=== PATIENT | male | born 1990 | race American Indian/Alaskan Native ===

== ENCOUNTER 2020-05-04 23:43 | Emergency (ER) | payer SELFPAY ==
[2020-05-05] MEDS ORDERED: SODIUM CHLORIDE 0.9% 1000 ML 1,000 ML IV ONE ×3 (00:05→02:39)
[2020-05-05] MEDS ORDERED: ONDANSETRON 4 MG/2 ML INJ IV ONE (00:05)
[2020-05-05] MEDS ORDERED: KETOROLAC 30 MG/1 ML INJ IV ONE ×2 (00:06→01:51)
--- NOTE | 2020-05-05 00:07 | Event Note ---
ED Screening Note Date of service: 05/05/20 Time: 00:02 ED Screening Note: 30 -Congolese male presents to the emergency room for acute abdominal pain that radiates to the back started about 1500. Patient states that the pain is a 10 out of 10. Patient reports that he has been urinating blood. He denies any penile discharge. Patient admits to nausea and vomiting all day. Denies any past medical history currently takes no medications on a daily basis and has no known drug allergies. This initial assessment/diagnostic orders/clinical plan/treatment(s) is/are subject to change based on patients health status, clinical progression and re- assessment by fellow clinical providers in the ED. Further treatment and workup at subsequent clinical providers discretion. Patient/guardian urged not to elope from the ED as their condition may be serious if not clinically assessed and managed. Initial orders include:
[2020-05-05 00:25] LABS: Basophils % (Auto) 0.5 % (0.0-1.8); Eosinophils % (Auto) 0.4 % (0.0-4.3); Hematocrit 48.4 % (35.5-45.6); Hemoglobin 16.1 gm/dl (11.8-15.2); Lymphocytes # (Auto) 0.9 K/mm3 (1.2-5.4); Lymphocytes % (Auto) 14.2 % (13.4-35.0); Mean Corpuscular HGB Conc 33 % (32-34); Mean Corpuscular Volume 89 fl (84-94); Monocytes # (Auto) 0.3 K/mm3 (0.0-0.8); Monocytes % (Auto) 4.6 % (0.0-7.3); Platelet Count 226 K/mm3 (140-440); Red Blood Count 5.41 M/mm3 (3.65-5.03); Red Cell Distribution Width 12.8 % (13.2-15.2)
[2020-05-05 00:46] LABS: Alanine Aminotransferase 14 units/L (7-56); Albumin 4.7 g/dL (3.9-5); BUN/Creatinine Ratio 15; Blood Urea Nitrogen 15 mg/dL (9-20); Calcium 10.2 mg/dL (8.4-10.2); Hemolysis Index 4
--- NOTE | 2020-05-05 01:15 | Cat Scan Report ---
CT abdomen pelvis wo con INDICATION / CLINICAL INFORMATION: Right flank pain with hematuria. TECHNIQUE: Axial CT imaging of abdomen and pelvis was obtained without contrast. Coronal and sagittal reformatte d imaging obtained and reviewed. All CT scans at this location are performed using CT dose reduction for ALARA by means of automated exposure control. COMPARISON: None available. FINDINGS: CT abdomen without contrast demonstrates grossly normal appearance of the liver, spleen, pancreas, an d adrenal glands for noncontrast exam. Gallbladder is present and without obvious pathology. There is mild right hydronephrosis present. Hydronephrosis is caused by a 4 mm calculus in the mid to distal right ureter. The calculus is at the level of the superior acetabulum, right hip. No addition al calculi are seen within the right kidney. There is a nonobstructing 3 mm calculus in the left kidn ey. CT pelvis without contrast does not demonstrate any mass, free fluid, or focal inflammatory change. A normal appendix is present. GI tract is unremarkable. Visualized lung bases are clear. No significant acute osseous abnormality is noted. IMPRESSION: 1. Mild right hydronephrosis caused by a a 4 mm calculus in the mid to distal right ureter. 2. Left nephrolithiasis. Signer Name: Kat Connell MD Signed: 05/05/2020 1:11 AM Workstation Name: [id number]
--- NOTE | 2020-05-05 01:40 | Emergency Department Report ---
ED Abdominal Pain HPI - General Chief Complaint: Abdominal Pain Stated Complaint: ABD PAIN/BLOOD IN URINE Source: patient Mode of arrival: Ambulatory Limitations: No Limitations - History of Present Illness Initial Comments: 30 -Turk[place] male presents to the emergency room for acute abdominal pain that radiates to the back started about 1500. Patient states that the pain is a 10 out of 10. Patient reports that he has been urinating blood. He denies any penile discharge. Patient admits to nausea and vomiting all day. Denies any past medical history currently takes no medications on a daily basis and has no known drug allergies. MD Complaint: flank pain -: This afternoon Location: R flank Radiation: suprapubic Severity scale (0 -10): 10 Quality: stabbing, aching, sharp Consistency: constant Improves With: nothing Worsens With: nothing Associated Symptoms: nausea, vomiting, hematuria Treatments Prior to Arrival: NSAIDs (930) - Related Data Previous Rx's Medication Instructions Recorded Last Taken Type DOXYCYCLINE Hyclate [Vibramycin 100 mg PO Q12HR 10 Days #20 capsule 05/05/20 Unknown Rx CAP] Ketorolac [Toradol] 10 mg PO Q6H PRN #20 tablet 05/05/20 Unknown Rx Oxycodone HCl/Acetaminophen 1 each PO Q6HR PRN #12 tablet 05/05/20 Unknown Rx [Percocet 7.5/325 mg] Tamsulosin [Flomax] 0.4 mg PO QDAY #5 cap 05/05/20 Unknown Rx Allergies Allergy/AdvReac Type Severity Reaction Status Date / Time No Known Allergies Allergy Unverified 05/04/20 23:58 ED Review of Systems ROS: Stated complaint: ABD PAIN/BLOOD IN URINE Other details as noted in HPI Comment: All other systems reviewed and negative ED Past Medical Hx - Past Medical History Previous Medical History?: No - Surgical History Past Surgical History?: No - Social History Smoking Status: Never Smoker Substance Use Type: None - Medications Home Medications: Home Medications Medication Instructions Recorded Confirmed Last Taken Type DOXYCYCLINE Hyclate [Vibramycin 100 mg PO Q12HR 10 Days #20 capsule 05/05/20 Unknown Rx CAP] Ketorolac [Toradol] 10 mg PO Q6H PRN #20 tablet 05/05/20 Unknown Rx Oxycodone HCl/Acetaminophen 1 each PO Q6HR PRN #12 tablet 05/05/20 Unknown Rx [Percocet 7.5/325 mg] Tamsulosin [Flomax] 0.4 mg PO QDAY #5 cap 05/05/20 Unknown Rx ED Physical Exam - General Limitations: No Limitations General appearance: alert, in distress - Head Head exam: Present: atraumatic, normocephalic - Eye Eye exam: Present: normal appearance - ENT ENT exam: Present: mucous membranes moist - Neck Neck exam: Present: normal inspection, full ROM - Respiratory Respiratory exam: Present: normal lung sounds bilaterally. Absent: accessory muscle use - Cardiovascular Cardiovascular Exam: Present: regular rate, normal rhythm. Absent: systolic murmur, diastolic murmur, rubs, gallop - GI/Abdominal GI/Abdominal exam: Present: soft, tenderness. Absent: distended - Extremities Exam Extremities exam: Present: normal inspection - Back Exam Back exam: Present: CVA tenderness (R) - Neurological Exam Neurological exam: Present: alert, oriented X3 - Psychiatric Psychiatric exam: Present: normal affect, normal mood - Skin Skin exam: Present: warm, dry, intact, normal color. Absent: rash ED Course Vital Signs 05/04/20 23:55 Temperature 98.9 F Pulse Rate 71 Respiratory 16 Rate Blood Pressure 112/81 O2 Sat by Pulse 99 Oximetry ED Medical Decision Making - Lab Data Result diagrams: 05/05/20 00:12 05/05/20 00:12 - Radiology Data Radiology results: report reviewed Patient: JESUSITA BAPTISTE MR#: [id number] : 1990 Acct:[id number] Age/Sex: 30 / M ADM Date: 05/04/20 Loc: ED Attending Dr: Ordering Physician: GUSTAVO SINGH Date of Service: 05/05/20 Procedure(s): CT abdomen pelvis wo con Accession Number(s): [id number] cc: GUSTAVO SINGH CT abdomen pelvis wo con INDICATION / CLINICAL INFORMATION: Right flank pain with hematuria. TECHNIQUE: Axial CT imaging of abdomen and pelvis was obtained without contrast. Coronal and sagittal reformatted imaging obtained and reviewed. All CT scans at this location are performed using CT dose reduction for ALARA by means of automated exposure control. COMPARISON: None available. FINDINGS: CT abdomen without contrast demonstrates grossly normal appearance of the liver, spleen, pancreas, and adrenal glands for noncontrast exam. Gallbladder is present and without obvious pathology. There is mild right hydronephrosis present. Hydronephrosis is caused by a 4 mm calculus in the mid to distal right ureter. The calculus is at the level of the superior acetabulum, right hip. No additional calculi are seen within the right kidney. There is a nonobstructing 3 mm calculus in the left kidney. CT pelvis without contrast does not demonstrate any mass, free fluid, or focal inflammatory change. A normal appendix is present. GI tract is unremarkable. Visualized lung bases are clear. No significant acute osseous abnormality is noted. IMPRESSION: 1. Mild right hydronephrosis caused by a a 4 mm calculus in the mid to distal right ureter. 2. Left nephrolithiasis. Signer Name: Kat Connell MD Signed: 05/05/2020 1:11 AM Workstation Name: [id number] Transcribed By: Dictated By: Kat Connell MD Electronically Authenticated By: Kat Connell MD Signed Date/Time: 05/05/20110 DD/ 7 TD/TT: - Medical Decision Making 30 -Turk[place] male presents to the emergency room for acute abdominal pain that radiates to the back started about 1500. Patient states that the pain is a 10 out of 10. Patient reports that he has been urinating blood. He denies any penile discharge. Patient admits to nausea and vomiting all day. Denies any past medical history currently takes no medications on a daily basis and has no known drug allergies. Urinalysis, CT abdomen pelvis CT abdomen pelvis shows mild right hydronephrosis with a 4 mm calculi. Left shows a nonobstructing calculi at the distal utero. Patient was given an IV Toradol normal saline and Zofran. Critical care attestation.: If time is entered above; I have spent that time in minutes in the direct care of this critically ill patient, excluding procedure time. ED Disposition Clinical Impression: Kidney stone on left side, Kidney stone on right side Hydronephrosis Qualifiers: Hydronephrosis type: unspecified Qualified Code(s): N13.30 - Unspecified hydronephrosis UTI (urinary tract infection) Qualifiers: Urinary tract infection type: acute cystitis Hematuria presence: with hematuria Qualified Code(s): N30.01 - Acute cystitis with hematuria Disposition: DC-01 TO HOME OR SELFCARE Is pt being admited?: No Does the pt Need Aspirin: No Condition: Stable Instructions: Renal Colic, [id number], Kidney Stones, [id number] Additional Instructions: Please complete antibiotics as prescribed. Your CT scan shows that you have to kidney stones one on the right and one on the left. Your urine shows that you have lots of bacteria so we will treat you with a Rocephin shot and send you h ome on antibiotics pain medication. Do not operate heavy machinery while taking the Percocet. Please follow-up with the urologist that I have placed in your discharge. Prescriptions: Tamsulosin [Flomax] 0.4 mg PO QDAY #5 cap Oxycodone HCl/Acetaminophen [Percocet 7.5/325 mg] 1 each PO Q6HR PRN #12 tablet PRN Reason: Pain Ketorolac [Toradol] 10 mg PO Q6H PRN #20 tablet PRN Reason: Pain DOXYCYCLINE Hyclate [Vibramycin CAP] 100 mg PO Q12HR 10 Days #20 capsule Referrals: JASPER MCLAUGHLIN MD [Staff Physician] - 3-5 Days Forms: Work/School Release Form(ED)
[2020-05-05] MEDS ORDERED: MORPHINE 4 MG/1 ML INJ IV ONE (01:41)
[2020-05-05 02:20] LABS: Bilirubin,Urine NEG (Negative); Blood,Urine LG (Negative); Color,Urine Amber (Yellow); Mucus,Urine 3+ /HPF; Urobilinogen,Urine < 2.0 mg/dL (<2.0)
[2020-05-05 02:21] LABS: RBC,Urine > 182.0 /HPF (0.0-6.0)
[2020-05-05] MEDS ORDERED: LIDOCAINE-MPF (1%) 10 MG/1 ML VIAL 5 ML INFILTRATI ONE (02:54)
[2020-05-05 04:53] VITALS: BP 119/71
== END 2020-05-05 05:08 | disposition home or self-care (01) ==
LOC: ED 23:43
DX: N39.0 Urinary tract infection, site not specified (principal); N13.30 Unspecified hydronephrosis; N20.0 Calculus of kidney; Z79.899 Other long term (current) drug therapy
CPT/HCPCS: 36415; 74176; 80053; 81001; 83690; 85025; 87086; 96361; 96372; 96374; 96375; 96376; 99284; J0696; J1885; J2270; J2405; J7030